=== PATIENT | female | born 1945 | race African-American/Black ===

== ENCOUNTER 2021-10-15 12:08 | Inpatient (IN) | payer MEDICARE, BC ==
[2021-10-15 13:14] LABS: #Basophils 0.1 10x3/uL (0.0-0.2); #Monocytes 0.8 10x3/uL (0.0-1.1); %Basophils 0.5 % (0.0-2.0); %Eosinophils 0.4 % (0.0-6.0); %Lymphocytes 17.4 % (18.0-47.0); %Monocytes 8.8 % (0.0-10.0); %Neutrophils 72.6 % (40.0-75.0); Hemoglobin 11.5 g/dL (12.0-15.5); Mean Corpuscular HGB CONC 30.8 g/dL (32.0-36.0); Mean Corpuscular Hemoglobin 31.7 pg (27.0-33.0); Mean Corpuscular Volume 102.8 fl (81.6-98.3); Platelet Count 227 10x3/uL (150-450); RBC Distribution Width 14.6 % (11.5-14.5); Red Blood Cell (RBC) Count 3.63 10x6/uL (3.90-5.03); White Blood Cell (WBC) Count 9.6 10x3/uL (3.5-10.5)
[2021-10-15 13:28] LABS: ALT (SGPT) 9 U/L (8-55); AST (SGOT) 10 U/L (5-34); Albumin 3.5 g/dL (3.4-4.8); Alkaline Phosphatase 47 U/L (40-110); Anion Gap 14 mmol/L (10-20); BUN (Urea Nitrogen) 28 mg/dL (9.8-20.1); Bilirubin, Total 0.6 mg/dL (0.2-1.2); CK (CPK) 66 U/L (29-168); Calc. Creatinine Clearance 0 mL/min (70-130); Calcium 9.5 mg/dL (7.8-10.44); Carbon Dioxide 36 mmol/L (23-31); Chloride 98 mmol/L (98-107); Globulin 3.4 g/dL (2.4-3.5); Glucose 141 mg/dL (83-110); Potassium 3.7 mmol/L (3.5-5.1); Protein, Total 6.9 g/dL (5.8-8.1); Sodium 144 mmol/L (136-145)
[2021-10-15] MEDS ORDERED: hydrALAZINE 20 MG/ML VIAL ONE (13:51)
[2021-10-15] MEDS ORDERED: Nitroglycerin 2% Ointment 1 INCH/1 GM Packet ONE (13:51)
[2021-10-15] MEDS ORDERED: Cefepime 2 GM VIAL ONE (14:19)
[2021-10-15 14:20] LABS: Bilirubin Neg (Negative); Blood, Urine Negative (Negative); Clarity Clear (Clear); Glucose, Urine (Dipstick) Normal (Negative); Ketone, Urine Negative (Negative); Leukocyte Negative (Negative); Nitrite Negative (Negative); Protein, Urine (Dipstick) 100 mg/dl (Neg-Trace); Specific Gravity, Urine 1.005 (1.002-1.036); Urobilinogen Normal mg/dL (Less than 2)
[2021-10-15 14:33] LABS: Bacteria/HPF Rare-Few HPF (None Seen); Mucous/LPF 1+ LPF (<2+); RBC/HPF 0-3 HPF (0-3); Squamous Epithelial 0-3 HPF (0-3); WBC/HPF 0-3 HPF (0-3)
[2021-10-15 15:01] LABS: SARS-CoV-2 NAA Rapid Test Not Detected (NotDetected)
[2021-10-15] MEDS ORDERED: cloNIDine 0.3mg/24 Hour PATCH TD SCH (15:30)
[2021-10-15] MEDS ORDERED: Aspirin 325 MG TAB PO SCH (15:30)
[2021-10-15] MEDS ORDERED: Aspirin Chewable 81 MG TAB ONE (15:34)
[2021-10-15] MEDS ORDERED: Furosemide 40 MG/4 ML VIAL SLOW IVP SCH (17:45)
[2021-10-15] MEDS ORDERED: Dextrose 5% in Water 1,000 ML IV PRN (18:07)
[2021-10-15] MEDS ORDERED: Dextrose 50% Abboject 50 ML SYRINGE SLOW IVP PRN (18:07)
[2021-10-15] MEDS ORDERED: HumaLOG 300 UNITS/3 ML VIAL SC PRN ×2 (18:07)
[2021-10-15] MEDS ORDERED: Furosemide 20 MG TAB PO SCH (18:15)
[2021-10-15] MEDS: Amlodipine 5 MG TAB PO SCH ×2 (18:25→18:53)
[2021-10-15 19:18] LABS: Magnesium 1.7 mg/dL (1.6-2.6)
[2021-10-15 19:22] LABS: Troponin I 0.028 ng/mL (< 0.028)
[2021-10-15] MEDS: Colchicine 0.6 MG TAB PO SCH (21:12)
[2021-10-15] MEDS: Heparin 5,000 UNITS/ML VIAL SC SCH (21:13)
[2021-10-15] MEDS ORDERED: HumaLOG 300 UNITS/3 ML VIAL ONE (21:33)
[2021-10-15] MEDS: hydrALAZINE 20 MG/ML VIAL SLOW IVP PRN (21:35)
[2021-10-15] MEDS: Cefepime 2 GM in Sodium Chloride 0.9% 100 ML IVPB SCH (22:48)
[2021-10-16] MEDS: hydrALAZINE 20 MG/ML VIAL SLOW IVP PRN (04:03)
[2021-10-16] MEDS ORDERED: Ketorolac Tromethamine 30 MG/ML VIAL IVP SCH (05:00)
[2021-10-16] MEDS: Furosemide 40 MG/4 ML VIAL SLOW IVP SCH ×2 (05:44→14:29)
[2021-10-16] MEDS ORDERED: Magnesium 2 GM/50 ML 2 GM in Premix Bag 1 BAG IVPB SCH (08:15)
[2021-10-16] MEDS ORDERED: tiZANidine HCl 4 MG TAB PO PRN (08:17)
[2021-10-16 08:37] LABS: #Eosinphils 0.1 10x3/uL (0.0-0.5); #Neutrophils 8.5 10x3/uL (1.5-8.4); %Basophils 0.3 % (0.0-2.0); %Eosinophils 0.5 % (0.0-6.0); %Lymphocytes 10.6 % (18.0-47.0); %Monocytes 9.4 % (0.0-10.0); %Neutrophils 78.8 % (40.0-75.0); Hemoglobin 11.3 g/dL (12.0-15.5); Mean Corpuscular HGB CONC 30.9 g/dL (32.0-36.0); Mean Corpuscular Hemoglobin 31.8 pg (27.0-33.0); Mean Corpuscular Volume 103.1 fl (81.6-98.3); Mean Platelet Volume 9.4 fl (7.4-10.4); Platelet Count 231 10x3/uL (150-450); RBC Distribution Width 14.6 % (11.5-14.5); Red Blood Cell (RBC) Count 3.55 10x6/uL (3.90-5.03); White Blood Cell (WBC) Count 10.7 10x3/uL (3.5-10.5)
[2021-10-16 08:53] LABS: Anion Gap 14 mmol/L (10-20); BUN (Urea Nitrogen) 25 mg/dL (9.8-20.1); Calc. Creatinine Clearance 52 mL/min (70-130); Calcium 9.3 mg/dL (7.8-10.44); Carbon Dioxide 37 mmol/L (23-31); Chloride 97 mmol/L (98-107); Glucose 158 mg/dL (83-110); Potassium 3.6 mmol/L (3.5-5.1); Sodium 144 mmol/L (136-145)
[2021-10-16] MEDS: hydrALAZINE 25 MG TAB PO SCH ×3 (09:25→21:45)
[2021-10-16] MEDS: Hydrochlorothiazide 25 MG TAB PO SCH (09:26)
[2021-10-16] MEDS: Aspirin 81 mg Enteric Coated Tablet PO SCH (09:26)
[2021-10-16] MEDS: Colchicine 0.6 MG TAB PO SCH ×2 (09:27→21:45)
[2021-10-16] MEDS: NIFEdipine XL 90 MG TAB PO SCH (09:27)
[2021-10-16] MEDS: Heparin 5,000 UNITS/ML VIAL SC SCH ×2 (09:28→21:47)
[2021-10-16] MEDS: Cefepime 2 GM in Sodium Chloride 0.9% 100 ML IVPB SCH ×2 (09:45→21:45)
[2021-10-16 10:25] LABS: Actual Bicarbonate (HCO3a) 34.6 mEq/L (22-28); Base Excess (BEa) 8.8 mEq/L (-2.0 to +3.0); CO2 Tension 52.8 mmHg (35.0-45.0); Calcium, Ionized (arterial) 1.14 mmol/L (1.12-1.30); Carboxyhemoglobin (COHb) 1.2 gm% (0.0-3.0); Hemoglobin (Hb) 12.6 g/dL (12.0-16.0); O2 Tension (PaO2), arterial 74.4 mmHg (> 70.0); Potassium - ABG Lab 3.6 mmol/L (3.70-5.30); Puncture Site LRA; pH, Arterial 7.43 (7.35-7.45)
[2021-10-16] MEDS ORDERED: VANCOMYCIN 1.75 GM/350 ML BAG 1.75 GM in Premix Bag 1 BAG IVPB SCH (15:00)
[2021-10-17 04:07] LABS: #Eosinphils 0.1 10x3/uL (0.0-0.5); #Monocytes 0.9 10x3/uL (0.0-1.1); #Neutrophils 7.8 10x3/uL (1.5-8.4); %Basophils 0.4 % (0.0-2.0); %Eosinophils 0.8 % (0.0-6.0); %Neutrophils 76.5 % (40.0-75.0); Hemoglobin 11.2 g/dL (12.0-15.5); Mean Corpuscular HGB CONC 30.5 g/dL (32.0-36.0); Mean Corpuscular Hemoglobin 31.4 pg (27.0-33.0); Mean Corpuscular Volume 102.8 fl (81.6-98.3); Mean Platelet Volume 9.4 fl (7.4-10.4); Platelet Count 247 10x3/uL (150-450); RBC Distribution Width 14.3 % (11.5-14.5); Red Blood Cell (RBC) Count 3.57 10x6/uL (3.90-5.03); White Blood Cell (WBC) Count 10.2 10x3/uL (3.5-10.5)
[2021-10-17 04:14] LABS: Anion Gap 15 mmol/L (10-20); BUN (Urea Nitrogen) 31 mg/dL (9.8-20.1); Calc. Creatinine Clearance 45 mL/min (70-130); Calcium 9.1 mg/dL (7.8-10.44); Carbon Dioxide 35 mmol/L (23-31); Chloride 95 mmol/L (98-107); Glucose 143 mg/dL (83-110); Potassium 3.3 mmol/L (3.5-5.1); Sodium 142 mmol/L (136-145)
[2021-10-17] MEDS: Furosemide 40 MG/4 ML VIAL SLOW IVP SCH (06:30)
[2021-10-17] MEDS ORDERED: Potassium Chloride 20 MEQ TAB PO SCH (08:00)
[2021-10-17] MEDS ORDERED: Potassium Chloride 10 MEQ in Premix Bag 1 BAG IVPB SCH ×2 (08:00→10:00)
[2021-10-17] MEDS: Cefepime 2 GM in Sodium Chloride 0.9% 100 ML IVPB SCH ×2 (08:24→20:13)
[2021-10-17] MEDS: Heparin 5,000 UNITS/ML VIAL SC SCH ×2 (08:24→20:19)
[2021-10-17] MEDS: hydrALAZINE 25 MG TAB PO SCH ×3 (08:25→20:13)
[2021-10-17] MEDS: NIFEdipine XL 90 MG TAB PO SCH (08:25)
[2021-10-17] MEDS: Hydrochlorothiazide 25 MG TAB PO SCH (08:25)
[2021-10-17] MEDS: Colchicine 0.6 MG TAB PO SCH ×2 (08:25→20:14)
[2021-10-17] MEDS: Aspirin 81 mg Enteric Coated Tablet PO SCH (08:25)
[2021-10-17] MEDS ORDERED: methylPREDNISolone Sod Succ 40 MG VIAL IVP SCH (14:00)
[2021-10-17] MEDS ORDERED: predniSONE 20 MG TAB PO SCH (14:00)
[2021-10-18 04:15] LABS: #Monocytes 0.1 10x3/uL (0.0-1.1); #Neutrophils 4.8 10x3/uL (1.5-8.4); %Lymphocytes 13.8 % (18.0-47.0); %Monocytes 1.9 % (0.0-10.0); %Neutrophils 84.1 % (40.0-75.0); Hemoglobin 12.2 g/dL (12.0-15.5); Mean Corpuscular HGB CONC 31.1 g/dL (32.0-36.0); Mean Corpuscular Hemoglobin 31.3 pg (27.0-33.0); Mean Corpuscular Volume 100.5 fl (81.6-98.3); Mean Platelet Volume 9.6 fl (7.4-10.4); Platelet Count 258 10x3/uL (150-450); White Blood Cell (WBC) Count 5.7 10x3/uL (3.5-10.5)
[2021-10-18 04:29] LABS: Anion Gap 18 mmol/L (10-20); BUN (Urea Nitrogen) 45 mg/dL (9.8-20.1); Calc. Creatinine Clearance 40 mL/min (70-130); Calcium 9.4 mg/dL (7.8-10.44); Carbon Dioxide 32 mmol/L (23-31); Chloride 96 mmol/L (98-107); Glucose 226 mg/dL (83-110); Potassium 4.5 mmol/L (3.5-5.1); Sodium 141 mmol/L (136-145)
[2021-10-18 04:46] LABS: Vancomycin, Random 21.9 ug/mL (See Comment)
[2021-10-18] MEDS ORDERED: VANCOMYCIN 1.25 GM/250 ML BAG 1.25 GM in Premix Bag 1 BAG IVPB SCH (06:00)
[2021-10-18] MEDS: Aspirin 81 mg Enteric Coated Tablet PO SCH (09:42)
[2021-10-18] MEDS: hydrALAZINE 25 MG TAB PO SCH ×3 (09:42→20:59)
[2021-10-18] MEDS: NIFEdipine XL 90 MG TAB PO SCH (09:42)
[2021-10-18] MEDS: Heparin 5,000 UNITS/ML VIAL SC SCH ×2 (09:43→21:01)
[2021-10-18] MEDS ORDERED: predniSONE 20 MG TAB PO SCH (13:00)
[2021-10-19] MEDS ORDERED: hydrALAZINE 25 MG TAB PO SCH (03:00)
[2021-10-19 04:58] LABS: #Monocytes 0.6 10x3/uL (0.0-1.1); #Neutrophils 6.2 10x3/uL (1.5-8.4); %Basophils 0.3 % (0.0-2.0); %Eosinophils 0.1 % (0.0-6.0); %Monocytes 7.5 % (0.0-10.0); %Neutrophils 78.7 % (40.0-75.0); Hemoglobin 11.6 g/dL (12.0-15.5); Mean Corpuscular HGB CONC 31.4 g/dL (32.0-36.0); Mean Corpuscular Hemoglobin 31.9 pg (27.0-33.0); Mean Corpuscular Volume 101.4 fl (81.6-98.3); Mean Platelet Volume 9.6 fl (7.4-10.4); Platelet Count 263 10x3/uL (150-450); RBC Distribution Width 13.8 % (11.5-14.5); Red Blood Cell (RBC) Count 3.64 10x6/uL (3.90-5.03); White Blood Cell (WBC) Count 7.9 10x3/uL (3.5-10.5)
[2021-10-19 05:10] LABS: Anion Gap 14 mmol/L (10-20); BUN (Urea Nitrogen) 46 mg/dL (9.8-20.1); Calc. Creatinine Clearance 48 mL/min (70-130); Calcium 9.3 mg/dL (7.8-10.44); Carbon Dioxide 35 mmol/L (23-31); Chloride 96 mmol/L (98-107); Glucose 166 mg/dL (83-110); Potassium 3.9 mmol/L (3.5-5.1); Sodium 141 mmol/L (136-145)
[2021-10-19] MEDS ORDERED: cloNIDine 0.3mg/24 Hour PATCH TD SCH (09:00)
[2021-10-19] MEDS: Heparin 5,000 UNITS/ML VIAL SC SCH ×2 (09:11→20:20)
[2021-10-19] MEDS: predniSONE 20 MG TAB PO SCH (09:12)
[2021-10-19] MEDS: Aspirin 81 mg Enteric Coated Tablet PO SCH (09:12)
[2021-10-19] MEDS: hydrALAZINE 25 MG TAB PO SCH ×3 (09:12→20:18)
[2021-10-19] MEDS: NIFEdipine XL 90 MG TAB PO SCH (09:13)
[2021-10-19] MEDS ORDERED: Carvedilol 6.25 MG TAB PO SCH (10:30)
[2021-10-19] MEDS: Carvedilol 6.25 MG TAB PO SCH (15:17)
[2021-10-20] MEDS ORDERED: Labetalol HCl 100 MG/20 ML VIAL SLOW IVP SCH (05:15)
[2021-10-20] MEDS ORDERED: hydrALAZINE 25 MG TAB PO SCH (06:15)
[2021-10-20] MEDS: Furosemide 20 MG TAB PO SCH (08:44)
[2021-10-20] MEDS: hydrALAZINE 25 MG TAB PO SCH ×3 (08:44→21:00)
[2021-10-20] MEDS: predniSONE 20 MG TAB PO SCH (08:45)
[2021-10-20] MEDS: Aspirin 81 mg Enteric Coated Tablet PO SCH (08:45)
[2021-10-20] MEDS: Carvedilol 6.25 MG TAB PO SCH ×2 (08:45→17:54)
[2021-10-20] MEDS: NIFEdipine XL 90 MG TAB PO SCH (08:46)
[2021-10-20 08:49] LABS: #Basophils 0.1 10x3/uL (0.0-0.2); #Eosinphils 0.1 10x3/uL (0.0-0.5); #Monocytes 0.7 10x3/uL (0.0-1.1); #Neutrophils 4.9 10x3/uL (1.5-8.4); %Lymphocytes 18.3 % (18.0-47.0); %Monocytes 9.4 % (0.0-10.0); Hemoglobin 12.2 g/dL (12.0-15.5); Mean Corpuscular HGB CONC 31.4 g/dL (32.0-36.0); Mean Corpuscular Hemoglobin 31.9 pg (27.0-33.0); Mean Corpuscular Volume 101.6 fl (81.6-98.3); Mean Platelet Volume 9.4 fl (7.4-10.4); Platelet Count 293 10x3/uL (150-450); RBC Distribution Width 13.6 % (11.5-14.5); Red Blood Cell (RBC) Count 3.83 10x6/uL (3.90-5.03); White Blood Cell (WBC) Count 7.1 10x3/uL (3.5-10.5)
[2021-10-20] MEDS ORDERED: Amlodipine 5 MG TAB PO SCH (09:00)
[2021-10-20] MEDS ORDERED: Losartan 25 MG TAB PO SCH (09:00)
[2021-10-20 09:06] LABS: Anion Gap 13 mmol/L (10-20); BUN (Urea Nitrogen) 45 mg/dL (9.8-20.1); Calc. Creatinine Clearance 50 mL/min (70-130); Calcium 9.5 mg/dL (7.8-10.44); Carbon Dioxide 36 mmol/L (23-31); Chloride 96 mmol/L (98-107); Glucose 141 mg/dL (83-110); Potassium 3.7 mmol/L (3.5-5.1); Sodium 141 mmol/L (136-145)
[2021-10-20] MEDS: Heparin 5,000 UNITS/ML VIAL SC SCH ×2 (12:57→21:02)
[2021-10-21 05:41] LABS: #Basophils 0.1 10x3/uL (0.0-0.2); #Eosinphils 0.1 10x3/uL (0.0-0.5); #Monocytes 0.6 10x3/uL (0.0-1.1); #Neutrophils 4.9 10x3/uL (1.5-8.4); %Basophils 0.8 % (0.0-2.0); %Eosinophils 1.6 % (0.0-6.0); %Lymphocytes 19.3 % (18.0-47.0); %Monocytes 8.7 % (0.0-10.0); %Neutrophils 69.2 % (40.0-75.0); Hemoglobin 11.8 g/dL (12.0-15.5); Mean Corpuscular HGB CONC 31.7 g/dL (32.0-36.0); Mean Corpuscular Hemoglobin 31.8 pg (27.0-33.0); Mean Corpuscular Volume 100.3 fl (81.6-98.3); Mean Platelet Volume 9.4 fl (7.4-10.4); Platelet Count 281 10x3/uL (150-450); RBC Distribution Width 13.6 % (11.5-14.5); Red Blood Cell (RBC) Count 3.71 10x6/uL (3.90-5.03); White Blood Cell (WBC) Count 7.1 10x3/uL (3.5-10.5)
[2021-10-21 06:00] LABS: Anion Gap 14 mmol/L (10-20); BUN (Urea Nitrogen) 48 mg/dL (9.8-20.1); Calc. Creatinine Clearance 50 mL/min (70-130); Calcium 9.3 mg/dL (7.8-10.44); Carbon Dioxide 35 mmol/L (23-31); Chloride 97 mmol/L (98-107); Glucose 185 mg/dL (83-110); Potassium 3.7 mmol/L (3.5-5.1); Sodium 142 mmol/L (136-145)
[2021-10-21 06:25] VITALS: BMI 36.9
[2021-10-21] MEDS ORDERED: Losartan Potassium 50 MG TAB PO SCH (09:00)
[2021-10-21] MEDS: predniSONE 20 MG TAB PO SCH (09:16)
[2021-10-21] MEDS: Aspirin 81 mg Enteric Coated Tablet PO SCH (09:16)
[2021-10-21] MEDS: NIFEdipine XL 90 MG TAB PO SCH (09:16)
[2021-10-21] MEDS: Furosemide 20 MG TAB PO SCH (09:16)
[2021-10-21] MEDS: Carvedilol 6.25 MG TAB PO SCH (09:16)
[2021-10-21] MEDS: hydrALAZINE 25 MG TAB PO SCH (09:18)
[2021-10-21] MEDS: Heparin 5,000 UNITS/ML VIAL SC SCH (09:27)
[2021-10-21 11:43] VITALS: TEMP 97.9
[2021-10-21 15:07] VITALS: BP 165/75
== END 2021-10-21 14:50 | disposition home or self-care (01) | DRG 553 ==
LOC: CSHERS 12:08 → CSHTELE 16:54
PROVIDERS: ADMIT Family Medicine; ATTEND Internal Medicine
DX: M10.9 Gout, unspecified (principal); J96.01 Acute respiratory failure with hypoxia; I50.33 Acute on chronic diastolic (congestive) heart failure; N17.9 Acute kidney failure, unspecified; I13.0 Hypertensive heart and chronic kidney disease with heart failure and stage 1 through stage 4 chronic kidney disease, or unspecified chronic kidney disease; M19.90 Unspecified osteoarthritis, unspecified site; Z96.643 Presence of artificial hip joint, bilateral; E78.5 Hyperlipidemia, unspecified; E66.01 Morbid (severe) obesity due to excess calories; Z20.822 Contact with and (suspected) exposure to COVID-19; I16.0 Hypertensive urgency; B96.20 Unspecified Escherichia coli [E. coli] as the cause of diseases classified elsewhere; N18.32 Chronic kidney disease, stage 3b; E66.9 Obesity, unspecified; E11.22 Type 2 diabetes mellitus with diabetic chronic kidney disease; G89.29 Other chronic pain; Z88.0 Allergy status to penicillin; Z88.5 Allergy status to narcotic agent; Z88.8 Allergy status to other drugs, medicaments and biological substances; Z79.82 Long term (current) use of aspirin; Z79.899 Other long term (current) drug therapy; Z68.36 Body mass index [BMI] 36.0-36.9, adult
CPT/HCPCS: 36415; 36416; 36600; 51701; 71045; 80048; 80053; 80202; 81003; 81015; 82550; 82805; 83605; 83735; 83880; 84443; 84484; 84550; 85025; 86140; 87040; 87077; 87086; 87186; 93005; 93306; 94760; 94762; 96365; 96367; 96375; 97139; J0360; J0692; J1644; J1815; J1885; J1940; J2920; J3370; J3475; J3480; J3490; J7512; U0002

== ENCOUNTER 2021-12-29 13:22 | Outpatient (CLI) | payer MEDICARE, BC | END 2021-12-29 13:23 | disposition home or self-care (01) | LOC: CSHMAMMO 13:22 | PROVIDERS: ATTEND Family Medicine | DX: Z12.31 Encounter for screening mammogram for malignant neoplasm of breast (principal) | CPT/HCPCS: 77063; 77067 ==

== ENCOUNTER 2023-01-11 08:54 | Outpatient (CLI) | payer MEDICARE, BC | END 2023-01-11 08:55 | disposition home or self-care (01) | LOC: CSHMAMMO 08:54 | PROVIDERS: ATTEND Family Medicine | DX: Z12.31 Encounter for screening mammogram for malignant neoplasm of breast (principal) | CPT/HCPCS: 77063; 77067 ==

== ENCOUNTER 2023-04-14 16:19 | Outpatient (CLI) | payer MEDICARE | END 2023-04-14 16:20 | disposition home or self-care (01) | LOC: CSHWCC 16:19 | PROVIDERS: ATTEND Nurse Practitioner Family | DX: L89.154 Pressure ulcer of sacral region, stage 4 (principal) ==

== ENCOUNTER 2023-06-05 08:30 | Inpatient (IN) | payer MEDICARE ==
[2023-06-05] MEDS ORDERED: Amiodarone In Dextrose 200 ML ONE (08:48)
[2023-06-05 09:17] LABS: Actual Bicarbonate (HCO3a) 18.1 mEq/L (22-28); Base Excess (BEa) -11.2 mEq/L (-2.0 to +3.0); CO2 Tension 57.4 mmHg (35.0-45.0); Calcium, Ionized (arterial) 1.17 mmol/L (1.12-1.30); Carboxyhemoglobin (COHb) 0.3 gm% (0.0-3.0); Hematocrit-ABG 30 % (36.0-47.0); Hemoglobin (Hb) 10.1 g/dL (12.0-16.0); O2 Tension (PaO2), arterial 86.8 mmHg (> 70.0); Puncture Site RRA; pH, Arterial 7.116 (7.35-7.45)
[2023-06-05 09:29] LABS: #Basophils 0.1 10x3/uL (0.0-0.2); #Monocytes 0.7 10x3/uL (0.0-1.1); #Neutrophils 10.6 10x3/uL (1.5-8.4); %Basophils 0.4 % (0.0-2.0); %Eosinophils 0.1 % (0.0-6.0); %Lymphocytes 29.4 % (18.0-47.0); %Neutrophils 64.5 % (40.0-75.0); Hematocrit 31.4 % (34.9-44.5); Hemoglobin 9.5 g/dL (12.0-15.5); Mean Corpuscular HGB CONC 30.3 g/dL (32.0-36.0); Mean Corpuscular Hemoglobin 29.8 pg (27.0-33.0); Mean Corpuscular Volume 98.4 fl (81.6-98.3); Mean Platelet Volume 9.4 fl (7.4-10.4); Platelet Count 314 10x3/uL (150-450); Red Blood Cell (RBC) Count 3.19 10x6/uL (3.90-5.03); White Blood Cell (WBC) Count 16.4 10x3/uL (3.5-10.5)
[2023-06-05 09:33] LABS: INR-International Normal Ratio 1.2; PTT 25.4 sec (22.0-33.0); Prothrombin Time 12.8 sec (9.5-12.1)
[2023-06-05 09:36] LABS: Bilirubin Neg (Negative); Blood, Urine 150 (Negative); Clarity Cloudy (Clear); Glucose, Urine (Dipstick) Normal (Negative); Ketone, Urine 15 mg/dL (Negative); Leukocyte 500 (Negative); Nitrite Negative (Negative); Protein, Urine (Dipstick) 500 mg/dl (Neg-Trace); Urobilinogen Normal mg/dL (Less than 2)
[2023-06-05 09:39] LABS: ALT (SGPT) Less than 7 U/L (8-55); AST (SGOT) 21 U/L (5-34); Albumin 2.9 g/dL (3.4-4.8); Alkaline Phosphatase 52 U/L (40-110); Anion Gap 24 mmol/L (10-20); BUN (Urea Nitrogen) 30 mg/dL (9.8-20.1); Bilirubin, Total 0.4 mg/dL (0.2-1.2); Calc. Creatinine Clearance 0 mL/min (70-130); Calcium 8.5 mg/dL (7.8-10.44); Carbon Dioxide 16 mmol/L (23-31); Chloride 110 mmol/L (98-107); Estimated GFR 21; Globulin 3.6 g/dL (2.4-3.5); Glucose 92 mg/dL (83-110); Magnesium 1.7 mg/dL (1.6-2.6); Protein, Total 6.5 g/dL (5.8-8.1); Sodium 145 mmol/L (136-145)
[2023-06-05 09:53] LABS: CAUTI Indications for Culture Alt mental st,lethar; Squamous Epithelial 0-3 HPF (0-3); WBC/HPF 21-50 HPF (0-3)
[2023-06-05 09:54] LABS: Bacteria/HPF 3+ HPF (None Seen); Mucous/LPF 1+ LPF (<2+); Yeast-Budding 1+ HPF (None Seen); Yeast-Hyphae 3+ HPF (None Seen)
[2023-06-05 09:55] LABS: Urine Culture Reflex Yes Yes
[2023-06-05 09:56] LABS: CKMB 1.7 ng/mL (0-6.6)
[2023-06-05] MEDS ORDERED: Vancomycin 1 GM VIAL ONE (10:08)
[2023-06-05] MEDS ORDERED: Cefepime 2 GM VIAL ONE (10:09)
[2023-06-05] MEDS ORDERED: traMADol HCl 50 MG TAB PO PRN (12:26)
[2023-06-05] MEDS ORDERED: Bisacodyl 5 MG TAB PO PRN (12:26)
[2023-06-05] MEDS ORDERED: Calcium Carbonate 500 MG ChewTAB PO PRN (12:26)
[2023-06-05] MEDS ORDERED: Ondansetron ODT 4 MG TAB PO PRN (12:26)
[2023-06-05] MEDS: Vancomycin HCl 1 GM in Sodium Chloride 0.9% 250 ML 250 ML IVPB SCH ×2 (12:35→13:50)
[2023-06-05] MEDS: Lactated Ringer's 1,000 ML IV SCH (12:41)
[2023-06-05] MEDS ORDERED: Amiodarone In Dextrose 200 ML IVPB SCH (12:45)
[2023-06-05] MEDS ORDERED: Amiodarone 450 MG in Dextrose 5% in Water 250 ML IVPB SCH (12:45)
[2023-06-05 12:52] LABS: Vancomycin, Trough Less than 1.1 ug/mL
[2023-06-05] MEDS ORDERED: Vancomycin Dose by Levels Sliding Scale (Wt > 99) FS SCH (13:00)
[2023-06-05] MEDS: Ondansetron PF 4 MG/2 ML Vial IVP PRN ×2 (13:46→20:15)
[2023-06-05] MEDS: Labetalol HCl 100 MG/20 ML VIAL SLOW IVP PRN (14:33)
[2023-06-05] MEDS: Carvedilol 25 MG TAB PO SCH (16:19)
[2023-06-05] MEDS: cloNIDine 0.1 MG TAB PO SCH (20:15)
[2023-06-05] MEDS: Atorvastatin Calcium 40 MG TAB PO SCH (20:15)
[2023-06-05] MEDS: Minoxidil 2.5 MG TAB PO SCH (20:17)
[2023-06-05] MEDS: Docusate 100 MG CAP PO SCH (20:18)
[2023-06-05] MEDS ORDERED: Vancomycin HCl 1 GM in Sodium Chloride 0.9% 250 ML 300 ML IVPB SCH (21:00)
[2023-06-05] MEDS ORDERED: cloNIDine 0.2 MG TAB PO SCH (21:00)
[2023-06-06] MEDS: Lactated Ringer's 1,000 ML IV SCH (01:38)
[2023-06-06 03:57] LABS: #Monocytes 0.7 10x3/uL (0.0-1.1); #Neutrophils 8.1 10x3/uL (1.5-8.4); %Basophils 0.2 % (0.0-2.0); %Eosinophils 0.1 % (0.0-6.0); %Lymphocytes 13.3 % (18.0-47.0); %Monocytes 6.6 % (0.0-10.0); Hematocrit 30.6 % (34.9-44.5); Hemoglobin 9.7 g/dL (12.0-15.5); Mean Corpuscular HGB CONC 31.7 g/dL (32.0-36.0); Mean Corpuscular Hemoglobin 29.7 pg (27.0-33.0); Mean Corpuscular Volume 93.6 fl (81.6-98.3); Mean Platelet Volume 10.7 fl (7.4-10.4); Platelet Count 241 10x3/uL (150-450); RBC Distribution Width 15.9 % (11.5-14.5); Red Blood Cell (RBC) Count 3.27 10x6/uL (3.90-5.03); White Blood Cell (WBC) Count 10.2 10x3/uL (3.5-10.5)
[2023-06-06 04:09] LABS: ALT (SGPT) 57 U/L (8-55); AST (SGOT) 201 U/L (5-34); Albumin 2.6 g/dL (3.4-4.8); Alkaline Phosphatase 50 U/L (40-110); Anion Gap 21 mmol/L (10-20); BUN (Urea Nitrogen) 38 mg/dL (9.8-20.1); Bilirubin, Total 0.3 mg/dL (0.2-1.2); Calc. Creatinine Clearance 31 mL/min (70-130); Calcium 8.1 mg/dL (7.8-10.44); Carbon Dioxide 16 mmol/L (23-31); Chloride 111 mmol/L (98-107); Estimated GFR 18; Glucose 134 mg/dL (83-110); Potassium 5.3 mmol/L (3.5-5.1); Protein, Total 6.6 g/dL (5.8-8.1); Sodium 143 mmol/L (136-145)
[2023-06-06 04:50] LABS: ALV-art Gradient 186.575 mmHg (0-20); Actual Bicarbonate (HCO3a) 17.1 mEq/L (22-28); Base Excess (BEa) -9.6 mEq/L (-2.0 to +3.0); CO2 Tension 40.7 mmHg (35.0-45.0); Calcium, Ionized (arterial) 1.19 mmol/L (1.12-1.30); Carboxyhemoglobin (COHb) 0.3 gm% (0.0-3.0); Hematocrit-ABG 32 % (36.0-47.0); Hemoglobin (Hb) 10.9 g/dL (12.0-16.0); O2 Tension (PaO2), arterial 83.4 mmHg (> 70.0); Potassium - ABG Lab 4.19 mmol/L (3.70-5.30); Puncture Site RRA; pH, Arterial 7.242 (7.35-7.45)
[2023-06-06] MEDS ORDERED: Albumin 25% 25 GM/100 ML BOT IVPB SCH (05:30)
[2023-06-06] MEDS ORDERED: LOKELMA 10 GM PACKET PO SCH (05:30)
[2023-06-06] MEDS: Labetalol HCl 100 MG/20 ML VIAL SLOW IVP PRN (06:08)
[2023-06-06] MEDS ORDERED: Furosemide 40 MG TAB PO SCH (07:30)
[2023-06-06] MEDS: DULoxetine 30 MG CAP PO SCH (08:03)
[2023-06-06] MEDS: cloNIDine 0.1 MG TAB PO SCH ×2 (08:03→22:43)
[2023-06-06] MEDS: Clopidogrel Bisulfate 75 MG TAB PO SCH (08:03)
[2023-06-06] MEDS: Famotidine 20 MG TAB PO SCH (08:03)
[2023-06-06] MEDS: Aspirin 81 mg Enteric Coated Tablet PO SCH (08:04)
[2023-06-06] MEDS: Carvedilol 25 MG TAB PO SCH ×2 (08:04→18:08)
[2023-06-06] MEDS: Gabapentin 100 MG CAP PO SCH (08:05)
[2023-06-06] MEDS: Ferrous Gluconate 324 MG TAB PO SCH (08:05)
[2023-06-06] MEDS: Minoxidil 2.5 MG TAB PO SCH ×2 (08:05→22:44)
[2023-06-06] MEDS: Docusate 100 MG CAP PO SCH ×2 (08:06→22:43)
[2023-06-06] MEDS: Cefepime 1 GM in Sodium Chloride 0.9% 100 ML IVPB SCH (09:06)
[2023-06-06] MEDS ORDERED: Furosemide 40 MG/4 ML VIAL SLOW IVP SCH ×2 (09:30→15:30)
[2023-06-06] MEDS ORDERED: Lidocaine 1% PF 5 ML VIAL ONE (09:43)
[2023-06-06] MEDS ORDERED: Sodium Bicarbonate 2.5 MEQ/5 ML VIAL ONE (09:43)
[2023-06-06] MEDS: Furosemide 40 MG/4 ML VIAL SLOW IVP SCH (13:09)
[2023-06-06 15:18] LABS: Vancomycin, Random 16.3 ug/mL (See Comment)
[2023-06-06 15:21] LABS: Anion Gap 18 mmol/L (10-20); BUN (Urea Nitrogen) 37 mg/dL (9.8-20.1); Calc. Creatinine Clearance 31 mL/min (70-130); Calcium 8.1 mg/dL (7.8-10.44); Carbon Dioxide 21 mmol/L (23-31); Chloride 108 mmol/L (98-107); Estimated GFR 18; Glucose 154 mg/dL (83-110); Sodium 143 mmol/L (136-145)
[2023-06-06] MEDS ORDERED: Furosemide 100 MG/10 ML VIAL SLOW IVP SCH (15:45)
[2023-06-06] MEDS: Atorvastatin Calcium 40 MG TAB PO SCH (22:44)
[2023-06-07 04:04] LABS: Anion Gap 17 mmol/L (10-20); BUN (Urea Nitrogen) 38 mg/dL (9.8-20.1); Calc. Creatinine Clearance 29 mL/min (70-130); Carbon Dioxide 21 mmol/L (23-31); Chloride 107 mmol/L (98-107); Estimated GFR 16; Glucose 119 mg/dL (83-110); Potassium 3.7 mmol/L (3.5-5.1); Sodium 141 mmol/L (136-145)
[2023-06-07 04:18] LABS: #Monocytes 0.6 10x3/uL (0.0-1.1); #Neutrophils 5.1 10x3/uL (1.5-8.4); %Basophils 0.6 % (0.0-2.0); %Eosinophils 0.6 % (0.0-6.0); %Lymphocytes 17.4 % (18.0-47.0); %Monocytes 8.1 % (0.0-10.0); %Neutrophils 72.7 % (40.0-75.0); Anisocytosis SLIGHT = 6-15 cells (100X) (0-5/hpf); Hematocrit 25.9 % (34.9-44.5); Hemoglobin 8.2 g/dL (12.0-15.5); Mean Corpuscular HGB CONC 31.7 g/dL (32.0-36.0); Mean Corpuscular Hemoglobin 29.6 pg (27.0-33.0); Mean Corpuscular Volume 93.5 fl (81.6-98.3); Mean Platelet Volume 11.4 fl (7.4-10.4); Platelet Count 187 10x3/uL (150-450); Red Blood Cell (RBC) Count 2.77 10x6/uL (3.90-5.03); White Blood Cell (WBC) Count 6.9 10x3/uL (3.5-10.5)
[2023-06-07 04:19] LABS: Hypochromia SLIGHT = 6-15 cells (100X) (0-5/hpf); Platelet Adequacy Comment Appears Adequate; Platelet Clumps SLIGHT; Schistocytes SLIGHT = 2-5 cells (100X) (0-1/hpf)
[2023-06-07] MEDS: Furosemide 40 MG/4 ML VIAL SLOW IVP SCH ×2 (06:18→13:28)
[2023-06-07] MEDS: Cefepime 1 GM in Sodium Chloride 0.9% 100 ML IVPB SCH (10:15)
[2023-06-07] MEDS: cloNIDine 0.1 MG TAB PO SCH ×2 (10:16→22:09)
[2023-06-07] MEDS: Minoxidil 2.5 MG TAB PO SCH ×2 (10:16→22:09)
[2023-06-07] MEDS: Gabapentin 100 MG CAP PO SCH (10:16)
[2023-06-07] MEDS: Carvedilol 25 MG TAB PO SCH ×2 (10:16→16:18)
[2023-06-07] MEDS: DULoxetine 30 MG CAP PO SCH (10:17)
[2023-06-07] MEDS: Famotidine 20 MG TAB PO SCH (10:17)
[2023-06-07] MEDS: Clopidogrel Bisulfate 75 MG TAB PO SCH (10:17)
[2023-06-07] MEDS: Aspirin 81 mg Enteric Coated Tablet PO SCH (10:17)
[2023-06-07] MEDS: Docusate 100 MG CAP PO SCH ×2 (10:17→22:09)
[2023-06-07 11:32] LABS: CKMB 1.8 ng/mL (0-6.6)
[2023-06-07] MEDS ORDERED: Vancomycin Dose by Levels Sliding Scale (Wt > 99) FS SCH (13:15)
[2023-06-07] MEDS ORDERED: VANCOMYCIN 1.75 GM/350 ML BAG 1.75 GM in Premix Bag 1 BAG IVPB SCH (13:15)
[2023-06-07 16:09] VITALS: BMI 37.5
[2023-06-07] MEDS ORDERED: Vancomycin 1 GM in Premix Bag 1 BAG IVPB SCH (21:00)
[2023-06-07] MEDS: Atorvastatin Calcium 40 MG TAB PO SCH (22:09)
[2023-06-08] MEDS: Furosemide 100 MG/10 ML VIAL SLOW IVP SCH ×2 (06:07→14:58)
[2023-06-08] MEDS: Minoxidil 2.5 MG TAB PO SCH ×2 (10:10→21:54)
[2023-06-08] MEDS: Gabapentin 100 MG CAP PO SCH (10:11)
[2023-06-08] MEDS: Clopidogrel Bisulfate 75 MG TAB PO SCH (10:12)
[2023-06-08] MEDS: Aspirin 81 mg Enteric Coated Tablet PO SCH (10:12)
[2023-06-08] MEDS: Carvedilol 25 MG TAB PO SCH ×2 (10:12→18:12)
[2023-06-08] MEDS: DULoxetine 30 MG CAP PO SCH (10:12)
[2023-06-08] MEDS: cloNIDine 0.1 MG TAB PO SCH ×3 (10:12→23:55)
[2023-06-08] MEDS: Ferrous Gluconate 324 MG TAB PO SCH (10:12)
[2023-06-08] MEDS: Famotidine 20 MG TAB PO SCH (10:12)
[2023-06-08] MEDS: Docusate 100 MG CAP PO SCH ×2 (10:34→21:30)
[2023-06-08] MEDS: Cefepime 1 GM in Sodium Chloride 0.9% 100 ML IVPB SCH (10:43)
[2023-06-08 13:47] LABS: Vancomycin, Random 27.3 ug/mL (See Comment)
[2023-06-08] MEDS: Atorvastatin Calcium 40 MG TAB PO SCH (21:54)
[2023-06-09 04:11] LABS: Anion Gap 16 mmol/L (10-20); BUN (Urea Nitrogen) 50 mg/dL (9.8-20.1); Calc. Creatinine Clearance 26 mL/min (70-130); Calcium 7.9 mg/dL (7.8-10.44); Carbon Dioxide 23 mmol/L (23-31); Chloride 106 mmol/L (98-107); Estimated GFR 15; Glucose 135 mg/dL (83-110); Potassium 3.8 mmol/L (3.5-5.1); Sodium 141 mmol/L (136-145)
[2023-06-09] MEDS: Furosemide 100 MG/10 ML VIAL SLOW IVP SCH ×2 (06:16→15:30)
[2023-06-09] MEDS: Docusate 100 MG CAP PO SCH ×2 (09:29→21:05)
[2023-06-09] MEDS: DULoxetine 30 MG CAP PO SCH (09:44)
[2023-06-09] MEDS: cloNIDine 0.1 MG TAB PO SCH ×2 (09:44→20:41)
[2023-06-09] MEDS: Famotidine 20 MG TAB PO SCH (09:45)
[2023-06-09] MEDS: Carvedilol 25 MG TAB PO SCH ×2 (09:45→18:07)
[2023-06-09] MEDS: Clopidogrel Bisulfate 75 MG TAB PO SCH (09:45)
[2023-06-09] MEDS: Aspirin 81 mg Enteric Coated Tablet PO SCH (09:46)
[2023-06-09] MEDS: Gabapentin 100 MG CAP PO SCH (09:46)
[2023-06-09] MEDS: Minoxidil 2.5 MG TAB PO SCH ×2 (09:46→20:41)
[2023-06-09 11:56] LABS: Hematocrit 25.6 % (34.9-44.5); Hemoglobin 8.1 g/dL (12.0-15.5); Platelet Count 168 10x3/uL (150-450)
[2023-06-09 13:49] LABS: Vancomycin, Random 25.3 ug/mL (See Comment)
[2023-06-09] MEDS ORDERED: traMADol HCl 50 MG TAB PO PRN (14:54)
[2023-06-09] MEDS: Atorvastatin Calcium 40 MG TAB PO SCH (20:40)
[2023-06-10 04:26] LABS: Anion Gap 15 mmol/L (10-20); BUN (Urea Nitrogen) 53 mg/dL (9.8-20.1); Calc. Creatinine Clearance 25 mL/min (70-130); Calcium 7.7 mg/dL (7.8-10.44); Carbon Dioxide 22 mmol/L (23-31); Chloride 104 mmol/L (98-107); Estimated GFR 14; Glucose 151 mg/dL (83-110); Potassium 4.3 mmol/L (3.5-5.1); Sodium 137 mmol/L (136-145)
[2023-06-10 04:27] LABS: #Eosinphils 0.1 10x3/uL (0.0-0.5); #Monocytes 0.6 10x3/uL (0.0-1.1); #Neutrophils 4.4 10x3/uL (1.5-8.4); %Basophils 0.5 % (0.0-2.0); %Eosinophils 1.3 % (0.0-6.0); %Lymphocytes 19.2 % (18.0-47.0); %Monocytes 9.1 % (0.0-10.0); %Neutrophils 69.4 % (40.0-75.0); Hematocrit 25.4 % (34.9-44.5); Hemoglobin 8.1 g/dL (12.0-15.5); Mean Corpuscular HGB CONC 31.9 g/dL (32.0-36.0); Mean Corpuscular Hemoglobin 29.3 pg (27.0-33.0); Mean Platelet Volume 10.3 fl (7.4-10.4); Platelet Count 178 10x3/uL (150-450); RBC Distribution Width 15.3 % (11.5-14.5); Red Blood Cell (RBC) Count 2.76 10x6/uL (3.90-5.03); White Blood Cell (WBC) Count 6.3 10x3/uL (3.5-10.5)
[2023-06-10] MEDS: Furosemide 100 MG/10 ML VIAL SLOW IVP SCH ×2 (06:03→15:08)
[2023-06-10 13:14] LABS: Vancomycin, Random 25.3 ug/mL (See Comment)
[2023-06-10] MEDS: Carvedilol 25 MG TAB PO SCH ×2 (14:38→18:16)
[2023-06-10] MEDS: DULoxetine 30 MG CAP PO SCH (14:39)
[2023-06-10] MEDS: Aspirin 81 mg Enteric Coated Tablet PO SCH (14:39)
[2023-06-10] MEDS: Docusate 100 MG CAP PO SCH ×2 (14:39→20:56)
[2023-06-10] MEDS: cloNIDine 0.1 MG TAB PO SCH ×2 (14:39→23:50)
[2023-06-10] MEDS: Clopidogrel Bisulfate 75 MG TAB PO SCH (14:39)
[2023-06-10] MEDS: Ferrous Gluconate 324 MG TAB PO SCH (14:40)
[2023-06-10] MEDS: Famotidine 20 MG TAB PO SCH (14:40)
[2023-06-10] MEDS: Minoxidil 2.5 MG TAB PO SCH ×2 (14:40→23:51)
[2023-06-10] MEDS: Gabapentin 100 MG CAP PO SCH (14:40)
[2023-06-10] MEDS: Atorvastatin Calcium 40 MG TAB PO SCH (20:55)
[2023-06-11 04:23] LABS: Anion Gap 15 mmol/L (10-20); BUN (Urea Nitrogen) 56 mg/dL (9.8-20.1); Calc. Creatinine Clearance 24 mL/min (70-130); Calcium 8.2 mg/dL (7.8-10.44); Carbon Dioxide 22 mmol/L (23-31); Chloride 105 mmol/L (98-107); Estimated GFR 13; Glucose 116 mg/dL (83-110); Potassium 4.3 mmol/L (3.5-5.1); Sodium 138 mmol/L (136-145)
[2023-06-11] MEDS: Furosemide 100 MG/10 ML VIAL SLOW IVP SCH ×2 (06:45→13:52)
[2023-06-11] MEDS: cloNIDine 0.1 MG TAB PO SCH (09:20)
[2023-06-11] MEDS: Carvedilol 25 MG TAB PO SCH ×2 (09:20→19:06)
[2023-06-11] MEDS: Famotidine 20 MG TAB PO SCH (09:21)
[2023-06-11] MEDS: Aspirin 81 mg Enteric Coated Tablet PO SCH (09:21)
[2023-06-11] MEDS: Docusate 100 MG CAP PO SCH (09:21)
[2023-06-11] MEDS: Minoxidil 2.5 MG TAB PO SCH (09:22)
[2023-06-11] MEDS: Gabapentin 100 MG CAP PO SCH (09:22)
[2023-06-11] MEDS: Clopidogrel Bisulfate 75 MG TAB PO SCH (09:22)
[2023-06-11] MEDS: DULoxetine 30 MG CAP PO SCH (09:23)
[2023-06-11] MEDS: traMADol HCl 50 MG TAB PO PRN (14:27)
[2023-06-11 15:18] LABS: Vancomycin, Random 23.3 ug/mL (See Comment)
[2023-06-12] MEDS: Minoxidil 2.5 MG TAB PO SCH ×3 (00:16→22:03)
[2023-06-12] MEDS: Atorvastatin Calcium 40 MG TAB PO SCH ×2 (00:16→22:03)
[2023-06-12] MEDS: cloNIDine 0.1 MG TAB PO SCH ×3 (00:16→22:03)
[2023-06-12] MEDS: Docusate 100 MG CAP PO SCH ×3 (00:17→22:03)
[2023-06-12 04:02] LABS: Anion Gap 16 mmol/L (10-20); BUN (Urea Nitrogen) 72 mg/dL (9.8-20.1); Calc. Creatinine Clearance 23 mL/min (70-130); Calcium 8.3 mg/dL (7.8-10.44); Carbon Dioxide 23 mmol/L (23-31); Chloride 103 mmol/L (98-107); Estimated GFR 13; Glucose 117 mg/dL (83-110); Potassium 4.4 mmol/L (3.5-5.1); Sodium 138 mmol/L (136-145)
[2023-06-12] MEDS: Furosemide 100 MG/10 ML VIAL SLOW IVP SCH ×2 (06:23→16:11)
[2023-06-12] MEDS: Epoetin (ESRD) 10,000 UNITS/ML VIAL SC SCH ×2 (09:00→16:12)
[2023-06-12] MEDS: DULoxetine 30 MG CAP PO SCH (09:46)
[2023-06-12] MEDS: Clopidogrel Bisulfate 75 MG TAB PO SCH (09:46)
[2023-06-12] MEDS: Aspirin 81 mg Enteric Coated Tablet PO SCH (09:46)
[2023-06-12] MEDS: Carvedilol 25 MG TAB PO SCH ×2 (09:46→17:46)
[2023-06-12] MEDS: Gabapentin 100 MG CAP PO SCH (09:46)
[2023-06-12] MEDS: Famotidine 20 MG TAB PO SCH (09:46)
[2023-06-13 04:12] LABS: #Eosinphils 0.1 10x3/uL (0.0-0.5); #Monocytes 0.9 10x3/uL (0.0-1.1); #Neutrophils 5.1 10x3/uL (1.5-8.4); %Basophils 0.4 % (0.0-2.0); %Eosinophils 1.6 % (0.0-6.0); %Lymphocytes 17.6 % (18.0-47.0); %Monocytes 11.3 % (0.0-10.0); %Neutrophils 68.7 % (40.0-75.0); Hematocrit 24.1 % (34.9-44.5); Hemoglobin 7.6 g/dL (12.0-15.5); Mean Corpuscular HGB CONC 31.5 g/dL (32.0-36.0); Mean Corpuscular Hemoglobin 29.3 pg (27.0-33.0); Mean Corpuscular Volume 93.1 fl (81.6-98.3); Mean Platelet Volume 10.7 fl (7.4-10.4); Platelet Count 219 10x3/uL (150-450); RBC Distribution Width 14.9 % (11.5-14.5); Red Blood Cell (RBC) Count 2.59 10x6/uL (3.90-5.03); White Blood Cell (WBC) Count 7.5 10x3/uL (3.5-10.5)
[2023-06-13 04:20] LABS: Anion Gap 16 mmol/L (10-20); BUN (Urea Nitrogen) 77 mg/dL (9.8-20.1); Calc. Creatinine Clearance 23 mL/min (70-130); Calcium 8.1 mg/dL (7.8-10.44); Carbon Dioxide 21 mmol/L (23-31); Chloride 102 mmol/L (98-107); Estimated GFR 12; Glucose 120 mg/dL (83-110); Potassium 5.1 mmol/L (3.5-5.1); Sodium 134 mmol/L (136-145)
[2023-06-13] MEDS: Furosemide 100 MG/10 ML VIAL SLOW IVP SCH ×2 (06:10→14:11)
[2023-06-13] MEDS: cloNIDine 0.1 MG TAB PO SCH ×2 (11:37→21:03)
[2023-06-13] MEDS: Carvedilol 25 MG TAB PO SCH ×2 (11:37→16:34)
[2023-06-13] MEDS: Gabapentin 100 MG CAP PO SCH (11:38)
[2023-06-13] MEDS: Docusate 100 MG CAP PO SCH ×2 (11:38→21:10)
[2023-06-13] MEDS: Aspirin 81 mg Enteric Coated Tablet PO SCH (11:38)
[2023-06-13] MEDS: DULoxetine 30 MG CAP PO SCH (11:38)
[2023-06-13] MEDS: Famotidine 20 MG TAB PO SCH (11:39)
[2023-06-13] MEDS: Clopidogrel Bisulfate 75 MG TAB PO SCH (11:39)
[2023-06-13] MEDS: Ferrous Gluconate 324 MG TAB PO SCH (11:39)
[2023-06-13] MEDS: Minoxidil 2.5 MG TAB PO SCH ×2 (11:39→21:09)
[2023-06-13] MEDS: Acetaminophen 325 MG TAB PO PRN (18:39)
[2023-06-13] MEDS: Atorvastatin Calcium 40 MG TAB PO SCH (21:10)
[2023-06-14 04:50] LABS: #Eosinphils 0.1 10x3/uL (0.0-0.5); #Monocytes 0.8 10x3/uL (0.0-1.1); #Neutrophils 3.5 10x3/uL (1.5-8.4); %Basophils 0.5 % (0.0-2.0); %Lymphocytes 26.1 % (18.0-47.0); %Monocytes 12.6 % (0.0-10.0); %Neutrophils 58.6 % (40.0-75.0); Hematocrit 22.3 % (34.9-44.5); Mean Corpuscular HGB CONC 31.4 g/dL (32.0-36.0); Mean Corpuscular Hemoglobin 28.7 pg (27.0-33.0); Mean Corpuscular Volume 91.4 fl (81.6-98.3); Mean Platelet Volume 10.1 fl (7.4-10.4); Platelet Count 230 10x3/uL (150-450); RBC Distribution Width 14.8 % (11.5-14.5); Red Blood Cell (RBC) Count 2.44 10x6/uL (3.90-5.03)
[2023-06-14 05:02] LABS: Anion Gap 15 mmol/L (10-20); BUN (Urea Nitrogen) 81 mg/dL (9.8-20.1); Calc. Creatinine Clearance 22 mL/min (70-130); Calcium 8.2 mg/dL (7.8-10.44); Carbon Dioxide 26 mmol/L (23-31); Chloride 101 mmol/L (98-107); Estimated GFR 12; Glucose 113 mg/dL (83-110); Potassium 4.3 mmol/L (3.5-5.1); Sodium 138 mmol/L (136-145)
[2023-06-14] MEDS: Furosemide 100 MG/10 ML VIAL SLOW IVP SCH ×2 (06:34→13:13)
[2023-06-14] MEDS: Acetaminophen 325 MG TAB PO PRN (09:32)
[2023-06-14] MEDS: Docusate 100 MG CAP PO SCH ×2 (09:33→22:55)
[2023-06-14] MEDS: cloNIDine 0.1 MG TAB PO SCH ×2 (09:33→22:53)
[2023-06-14] MEDS: DULoxetine 30 MG CAP PO SCH (09:34)
[2023-06-14] MEDS: Minoxidil 2.5 MG TAB PO SCH ×2 (09:34→22:55)
[2023-06-14] MEDS: Gabapentin 100 MG CAP PO SCH (09:34)
[2023-06-14] MEDS: Carvedilol 25 MG TAB PO SCH ×2 (09:34→16:02)
[2023-06-14] MEDS: Clopidogrel Bisulfate 75 MG TAB PO SCH (09:35)
[2023-06-14] MEDS: Famotidine 20 MG TAB PO SCH (09:35)
[2023-06-14] MEDS: Aspirin 81 mg Enteric Coated Tablet PO SCH (09:35)
[2023-06-14] MEDS: Atorvastatin Calcium 40 MG TAB PO SCH (22:55)
[2023-06-15 05:28] LABS: #Eosinphils 0.1 10x3/uL (0.0-0.5); #Monocytes 0.7 10x3/uL (0.0-1.1); #Neutrophils 3.1 10x3/uL (1.5-8.4); %Basophils 0.5 % (0.0-2.0); %Eosinophils 2.5 % (0.0-6.0); %Lymphocytes 27.7 % (18.0-47.0); %Monocytes 13.3 % (0.0-10.0); %Neutrophils 55.5 % (40.0-75.0); Hemoglobin 7.3 g/dL (12.0-15.5); Mean Corpuscular HGB CONC 31.7 g/dL (32.0-36.0); Mean Corpuscular Volume 91.3 fl (81.6-98.3); Mean Platelet Volume 9.8 fl (7.4-10.4); Platelet Count 257 10x3/uL (150-450); RBC Distribution Width 14.4 % (11.5-14.5); Red Blood Cell (RBC) Count 2.52 10x6/uL (3.90-5.03); White Blood Cell (WBC) Count 5.6 10x3/uL (3.5-10.5)
[2023-06-15 05:42] LABS: Anion Gap 14 mmol/L (10-20); BUN (Urea Nitrogen) 80 mg/dL (9.8-20.1); Calc. Creatinine Clearance 22 mL/min (70-130); Calcium 8.2 mg/dL (7.8-10.44); Carbon Dioxide 27 mmol/L (23-31); Chloride 100 mmol/L (98-107); Estimated GFR 12; Glucose 109 mg/dL (83-110); Potassium 4.4 mmol/L (3.5-5.1); Sodium 137 mmol/L (136-145)
[2023-06-15] MEDS: Furosemide 100 MG/10 ML VIAL SLOW IVP SCH (05:45)
[2023-06-15] MEDS: Docusate 100 MG CAP PO SCH ×2 (09:44→20:06)
[2023-06-15] MEDS: Gabapentin 100 MG CAP PO SCH (09:45)
[2023-06-15] MEDS: Clopidogrel Bisulfate 75 MG TAB PO SCH (09:45)
[2023-06-15] MEDS: Aspirin 81 mg Enteric Coated Tablet PO SCH (09:46)
[2023-06-15] MEDS: DULoxetine 30 MG CAP PO SCH (09:46)
[2023-06-15] MEDS: Minoxidil 2.5 MG TAB PO SCH ×2 (09:47→20:06)
[2023-06-15] MEDS: cloNIDine 0.1 MG TAB PO SCH ×2 (09:49→20:06)
[2023-06-15] MEDS: Ferrous Gluconate 324 MG TAB PO SCH (09:49)
[2023-06-15] MEDS: Famotidine 20 MG TAB PO SCH (09:50)
[2023-06-15] MEDS: Carvedilol 25 MG TAB PO SCH ×2 (09:51→17:03)
[2023-06-15] MEDS: Acetaminophen 325 MG TAB PO PRN (09:59)
[2023-06-15] MEDS: Atorvastatin Calcium 40 MG TAB PO SCH (20:06)
[2023-06-16] MEDS: Clopidogrel Bisulfate 75 MG TAB PO SCH (09:55)
[2023-06-16] MEDS: Gabapentin 100 MG CAP PO SCH (09:55)
[2023-06-16] MEDS: Minoxidil 2.5 MG TAB PO SCH ×2 (09:55→21:27)
[2023-06-16] MEDS: Famotidine 20 MG TAB PO SCH (09:55)
[2023-06-16] MEDS: Carvedilol 25 MG TAB PO SCH ×2 (09:56→18:12)
[2023-06-16] MEDS: Aspirin 81 mg Enteric Coated Tablet PO SCH (09:56)
[2023-06-16] MEDS: Docusate 100 MG CAP PO SCH ×2 (09:56→21:27)
[2023-06-16] MEDS: cloNIDine 0.1 MG TAB PO SCH ×2 (09:56→21:32)
[2023-06-16] MEDS: DULoxetine 30 MG CAP PO SCH (09:56)
[2023-06-16] MEDS: Atorvastatin Calcium 40 MG TAB PO SCH (21:27)
[2023-06-16] MEDS: traMADol HCl 50 MG TAB PO PRN (22:20)
[2023-06-17] MEDS: Acetaminophen 325 MG TAB PO PRN (10:26)
[2023-06-17] MEDS: cloNIDine 0.1 MG TAB PO SCH (10:26)
[2023-06-17] MEDS: DULoxetine 30 MG CAP PO SCH (10:27)
[2023-06-17] MEDS: Famotidine 20 MG TAB PO SCH (10:27)
[2023-06-17] MEDS: Minoxidil 2.5 MG TAB PO SCH (10:27)
[2023-06-17] MEDS: Ferrous Gluconate 324 MG TAB PO SCH (10:28)
[2023-06-17] MEDS: Gabapentin 100 MG CAP PO SCH (10:28)
[2023-06-17] MEDS: Aspirin 81 mg Enteric Coated Tablet PO SCH (10:28)
[2023-06-17] MEDS: Docusate 100 MG CAP PO SCH (10:28)
[2023-06-17] MEDS: Carvedilol 25 MG TAB PO SCH ×2 (10:28→17:53)
[2023-06-17] MEDS: Clopidogrel Bisulfate 75 MG TAB PO SCH (10:28)
[2023-06-17 17:04] VITALS: BP 124/60; TEMP 97.5
== END 2023-06-17 19:24 | DRG 871 ==
LOC: CSHERS 08:30 → CSHIMCU 10:30 → CSHTELE 06-07 08:00
PROVIDERS: ADMIT Family Medicine; ATTEND Internal Medicine
PROC: 4A133R1 Monitoring of Arterial Saturation, Peripheral, Percutaneous Approach (ICD-10-PCS; principal; 2023-06-05)
PROC: 3E03329 Introduction of Other Anti-infective into Peripheral Vein, Percutaneous Approach (ICD-10-PCS; 2023-06-05)
PROC: 30233J1 Transfusion of Nonautologous Serum Albumin into Peripheral Vein, Percutaneous Approach (ICD-10-PCS; 2023-06-06)
PROC: 5A09457 Assistance with Respiratory Ventilation, 24-96 Consecutive Hours, Continuous Positive Airway Pressure (ICD-10-PCS; 2023-06-07)
DX: A41.9 Sepsis, unspecified organism (principal); G93.41 Metabolic encephalopathy; L89.154 Pressure ulcer of sacral region, stage 4; J96.01 Acute respiratory failure with hypoxia; J96.02 Acute respiratory failure with hypercapnia; I50.43 Acute on chronic combined systolic (congestive) and diastolic (congestive) heart failure; N17.9 Acute kidney failure, unspecified; N18.5 Chronic kidney disease, stage 5; I13.2 Hypertensive heart and chronic kidney disease with heart failure and with stage 5 chronic kidney disease, or end stage renal disease; I42.8 Other cardiomyopathies; E66.2 Morbid (severe) obesity with alveolar hypoventilation; E87.20 Acidosis, unspecified; E44.0 Moderate protein-calorie malnutrition; M46.28 Osteomyelitis of vertebra, sacral and sacrococcygeal region; Z66 Do not resuscitate; Z51.5 Encounter for palliative care; R65.20 Severe sepsis without septic shock; C53.9 Malignant neoplasm of cervix uteri, unspecified; I48.91 Unspecified atrial fibrillation; E11.22 Type 2 diabetes mellitus with diabetic chronic kidney disease; R53.81 Other malaise; D63.1 Anemia in chronic kidney disease; E87.5 Hyperkalemia; E88.09 Other disorders of plasma-protein metabolism, not elsewhere classified; I27.20 Pulmonary hypertension, unspecified; Z88.0 Allergy status to penicillin; Z88.5 Allergy status to narcotic agent; Z88.8 Allergy status to other drugs, medicaments and biological substances; Z79.82 Long term (current) use of aspirin; Z79.899 Other long term (current) drug therapy; Z95.0 Presence of cardiac pacemaker; Z92.3 Personal history of irradiation; Z92.21 Personal history of antineoplastic chemotherapy; Z68.37 Body mass index [BMI] 37.0-37.9, adult; Z74.01 Bed confinement status
CPT/HCPCS: 36415; 36416; 36600; 70450; 71045; 80048; 80053; 80202; 81001; 82553; 82805; 83605; 83735; 83880; 84145; 84484; 85014; 85018; 85025; 85049; 85610; 85730; 86850; 86900; 86901; 87040; 87077; 87086; 87149; 93005; 93010; 93306; 94660; 94760; 94762; 96374; 96375; 97139; J0283; J0692; J1940; J2405; J3370; J3490; J7050; J7120; P9047; Q0162; Q4081